=== PATIENT | female | born 1965 | race Caucasian/White ===

== ENCOUNTER 2022-09-25 14:13 | Emergency (ER) | payer OTHER, SELFPAY ==
--- NOTE | ~2022-09-25 | XR_ITS ---
XR hand RT min 3V 09/25/2022 14:34 Indication: Hyperextension injury to the right hand. Procedure: 3 views right hand Comparison: No prior studies for comparison. Findings: There is a minimally displaced oblique mid shaft fracture of the fifth metacarpal without i ntra-articular extension. Mild soft tissue swelling. Osteopenia. No foreign bodies. No other fracture . Impression: 1: Mildly displaced extra-articular fracture right fifth metacarpal. Reviewed, dictated and finalized at location A. Impression: 1: Mildly displaced extra-articular fracture right fifth metacarpal.
--- NOTE | 2022-09-25 14:15 | ED.EXTPRO ---
HPI - Extremity Problem General Chief complaint: Extremity Injury, Upper Stated complaint: Rt Hand Pain Time Seen by Provider: 09/25/22 14:15 Source: patient Mode of arrival: ambulatory Limitations: no limitations History of Present Illness HPI Narrative: Ladan is a 57-year-old female patient presenting to the clinic today with complaints of right hand pain x5 days. She reports she was helping lift furniture when her fingers were hyperextended and went back. Initially was having pain in the 4th and 5th fingers however pain has manifest now in her lateral hand. Does have swelling to the lateral hand as well. Pain with flexion and extension of the 4th and 5th fingers against resistance. Related Data Home Medications Medication Instructions Recorded Confirmed cetirizine 10 mg capsule (Zyrtec) 10 mg PO DAILY 02/15/19 09/25/22 fluoxetine 20 mg capsule (Prozac) 20 mg PO DAILY 02/15/19 09/25/22 losartan 100 mg tablet 100 mg PO DAILY 02/15/19 09/25/22 montelukast 10 mg tablet 10 mg PO DAILY 02/15/19 09/25/22 (Singulair) furosemide 20 mg tablet 20 mg DIRECTED 09/25/22 09/25/22 Allergies Allergy/AdvReac Type Severity Reaction Status Date / Time Penicillins Allergy Unknown Verified 02/19/19 12:06 Review of Systems Review of Systems: Pertinent positives per HPI. Patient denies any fever, chills, rash, headache, visual changes, dizziness, cough, runny nose, sore throat, shortness of breath, chest pain, palpitations, nausea, vomiting, diarrhea, constipation, abdominal pain, or any urinary issues. PMFSH Comments At the time of my signature, I reviewed and agree with the nursing past medical, surgical, social, and family history. There is no relevant family history pertinent to the patient complaint. Exam Narrative: General: Well-developed, well nourished, in no apparent distress Head: Normocephalic, atraumatic. Cardio: Regular rate and rhythm, s1 and s2 normal, no murmur appreciated. Resp: Clear to auscultation bilaterally, no rhonchi, rales, wheezing or rubs. Musculoskeletal: No deformity, moderate swelling to the right hand above the 4th and 5th metacarpals, tender to palpation over the 4th and 5th metacarpals, pain with flexion and extension against resistance to the 4th and 5th carpal, capillary refill less than 2 seconds and all fingers, muscle strength strong and equal, peripheral pulse strong, no cyanosis, normal gait and station Course Course Emergency Course: Portions of this record may have been created with voice recognition software. Level of Care: Express Care Visit Vital Signs Vital signs: Vital signs reviewed MDM - Extremity (Nontraumatic) MDM Narrative Medical decision making narrative: At the time of visit patient is resting comfortably on the exam table. X-ray of the right hand was performed and shows that she has a mildly displaced metacarpal fracture. Ulnar gutter splint was applied and arm sling was given. Ortho referral given supportive measures were discussed with the patient she voiced understanding discharge instructions agrees to treatment plan. Differential Diagnosis Differential diagnosis: Likely other (Fifth metacarpal fracture, finger sprain, soft tissue swelling, finger fracture, finger dislocation) Discharge Plan Discharge Clinical Impression: Fracture of fifth metacarpal bone of right hand Qualifiers: Encounter type: initial encounter Fracture type: closed Metacarpal location: shaft Fracture alignment: displaced Qualified Code(s): S62.326A - Displaced fracture of shaft of fifth metacarpal bone, right hand, initial encounter for closed fracture Patient Disposition: Home, Self-Care Condition: Stable Instructions: Antibiotic Form, Hand Fracture (ED) Additional Instructions: X-ray shows a mildly displaced extra-articular fracture of the right 5th metacarpal Rest, ice, elevate, and wear OCL splint as directed Upper arm sling to help elevate right arm/hand Tyl
[2022-09-25 14:24] VITALS: BP 133/54; PULSE 74; RESP 18; TEMP 36.5; O2SAT 100
== END 2022-09-25 15:20 | disposition home or self-care (01) ==
PROVIDERS: Emergency Provider Nurse Practitioner Family; PCP Internal Medicine
DX: S62.326A Displaced fracture of shaft of fifth metacarpal bone, right hand, initial encounter for closed fracture (principal); X50.0XXA Overexertion from strenuous movement or load, initial encounter; I10 Essential (primary) hypertension; J45.909 Unspecified asthma, uncomplicated
CPT/HCPCS: 29125; 73130; 99204; A4565; G0463